=== PATIENT | female | born 1995 | race Caucasian/White ===

== ENCOUNTER 2021-04-16 12:16 | Emergency (ER) | payer BC ==
[~2021-04-16] VITALS: Ht 160 cm; Wt 50.8 kg
[2021-04-16 12:26] VITALS: BP 121/69
--- NOTE | 2021-04-16 12:30 | NUR ---
PT TO WAIT IN LOBBY.
--- NOTE | 2021-04-16 12:32 | NUR ---
25 Y/O FEMALE C/O ABD PAIN 02/23 DESCRIBES CRAMPING X2DAYS. PT STATES +N/-V, LAST BM 04/15/21. DENIES FEVER/CHILLS. ABD IS SOFT, FLAT, NON-TENDER TO PALPATION, BOWEL SOUNDS ACTIVE X4. DENIES PMH NKA
--- NOTE | 2021-04-16 12:55 | NUR ---
Patient ambulated to bed 05 with steady/even gait.
--- NOTE | 2021-04-16 13:09 | NUR ---
DR. CESPEDES AT PT BEDSIDE FOR FURTHER EVALUATION.
--- NOTE | 2021-04-16 13:29 | NUR ---
Patient taken for X-ray via wheelchair.
[2021-04-16] MEDS ORDERED: ONDA-24 PO (13:54)
[2021-04-16] MEDS ORDERED: IBUP-2213 PO (13:54)
[2021-04-16] MEDS ORDERED: MIRABULK PO (13:54)
[2021-04-16 14:23] VITALS: BP 121/69
--- NOTE | 2021-04-16 14:24 | NUR ---
Patient discharged with v/s stable. Written and verbal after care instructions given and explained. Patient alert, oriented and verbalized understanding of instructions. Ambulatory with steady gait. All questions addressed prior to discharge. ID band removed. Patient advised to follow up with PMD. Rx of IBUPROFEN, POLYETHYLENE, ONDANSETRON given. Patient educated on indication of medication including possible reaction and side effects. Opportunity to ask questions provided and answered.
== END 2021-04-16 14:24 | disposition home or self-care (01) ==
LOC: MED 12:16
DX: K59.00 Constipation, unspecified (principal)
CPT/HCPCS: 74021; 81002; 81025; 99283

== ENCOUNTER 2022-03-24 06:45 | Emergency (ER) | payer BC ==
[~2022-03-24] VITALS: Ht 160 cm; Wt 53.5 kg
[~2022-03-24 06:45] MED LIST: IBUP-2213 PO; MIRABULK PO; ONDA-188 PO
[2022-03-24 06:57] VITALS: BP 96/61
--- NOTE | 2022-03-24 07:05 | NUR ---
PT TAKEN TO BED 11
--- NOTE | 2022-03-24 07:09 | NUR ---
Dr. Sarkar examining patient.
--- NOTE | 2022-03-24 08:15 | NUR ---
ortho shoe immobilizer applied to r foot. + CMS AFTER APPLICATION.
[2022-03-24] MEDS ORDERED: ACETAMINOPHEN EXTRA STRENGTH 500 MG TAB ONE (08:17)
[2022-03-24] MEDS: ACETAMINOPHEN EXTRA STRENGTH 500 MG TAB PO ONE (08:20)
--- NOTE | 2022-03-24 08:23 | NUR ---
Patient discharged with v/s stable. Written and verbal after care instructions given and explained. Patient verbalized understanding. Ambulatory with steady gait. All questions addressed prior to discharge. Advised to follow up with PMD.
== END 2022-03-24 08:23 | disposition home or self-care (01) ==
LOC: MED 06:45
DX: S92.511A Displaced fracture of proximal phalanx of right lesser toe(s), initial encounter for closed fracture (principal); Z79.899 Other long term (current) drug therapy; Z79.1 Long term (current) use of non-steroidal anti-inflammatories (NSAID); W23.0XXA Caught, crushed, jammed, or pinched between moving objects, initial encounter; Y93.89 Activity, other specified; Y92.89 Other specified places as the place of occurrence of the external cause; Y99.8 Other external cause status
CPT/HCPCS: 73630; 99283; Q0092

== ENCOUNTER 2022-06-06 12:33 | Emergency (ER) | payer BC ==
[~2022-06-06] VITALS: Ht 160 cm; Wt 51.0 kg
[2022-06-06 12:41] VITALS: BP 108/73
[2022-06-06] MEDS ORDERED: NAPR-1704 PO (14:23)
== END 2022-06-06 15:40 | disposition home or self-care (01) ==
LOC: MED 12:33
DX: S16.1XXA Strain of muscle, fascia and tendon at neck level, initial encounter (principal); S00.83XA Contusion of other part of head, initial encounter; V49.88XA Car occupant (driver) (passenger) injured in other specified transport accidents, initial encounter; Y93.89 Activity, other specified; Y92.89 Other specified places as the place of occurrence of the external cause; Y99.8 Other external cause status
CPT/HCPCS: 70150; 72050; 73000; 81002; 81025; 99284